=== PATIENT | female | born 1995 | race Two or more races ===

== ENCOUNTER 2017-01-16 17:43 | Emergency (ER) | payer OTHER ==
[~2017-01-16] VITALS: Wt 80.0 kg
[~2017-01-16 17:43] MED LIST: HYDR-3498 PO; IBUP800T25 PO
[2017-01-16] MEDS ORDERED: HYDROCODONE/APAP (5/325) TAB PO ONE (20:00)
[2017-01-16 20:08] LABS: ADD UMIC YES; UR BILIRUBIN (Dip) NEGATIVE (NEGATIVE); UR BLOOD (Dip) 2+ (NEGATIVE); UR CLARITY CLOUDY (CLEAR); UR COLOR LT. YELLOW (YELLOW); UR GLUCOSE (Dip) NEGATIVE (NEGATIVE); UR KETONES (Dip) NEGATIVE (NEGATIVE); UR LEUKOCYTE ESTERASE (Dip) 2+ (NEGATIVE); UR NITRITE (Dip) NEGATIVE (NEGATIVE); UR TOTAL PROTEIN (Dip) NEGATIVE (NEGATIVE); UR UROBILINOGEN (Dip) 0.2 E.U./dL (0.1-1.0)
[2017-01-16 20:15] LABS: UR BACTERIA FEW; UR SQUAMOUS EPITHELIAL CELL MODERATE
[2017-01-16] MEDS ORDERED: CEFTRIAXONE 250 MG INJ IM ONE (20:30)
[2017-01-16] MEDS ORDERED: AZITHROMYCIN 250 MG TAB PO ONE (20:30)
--- NOTE | 2017-01-16 21:59 | RADRPT ---
PROCEDURE: XR Forearm. CLINICAL INDICATION: left forearm pain TECHNIQUE: AP and lateral views of the left forearm were obtained. COMPARISON: No prior studies are available for comparison. FINDINGS: There is normal mineralization and alignment. No fracture or osseous lesion is identified. There are normal joints without evidence of arthritis or effusion. The soft tissues are unremarkable. IMPRESSION: Unremarkable left forearm. No visualized fracture or dislocation. RPTAT: HBST .Aaron Arriola MD, MD Date Time Electronically viewed and signed by .Aaron Arriola MD, MD on 01/16/2017 21:59 .T/
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
--- NOTE | 2017-01-16 22:09 | RADRPT ---
PROCEDURE: XR Knee. CLINICAL INDICATION: right knee pain TECHNIQUE: AP, lateral and tunnel view of the right knee were obtained. The images reviewed on a PACS workstation. COMPARISON: None. FINDINGS: The bones appear intact, with no evidence of fracture, erosion, demineralization, or dislocation. Th e alignment of the femorotibial and patellofemoral joints appears normal. There is mild medial femor al tibial compartment joint space narrowing. No evidence of effusion or soft tissue swelling is pres ent. IMPRESSION: No visualized fracture or dislocation. Mild medial femoral tibial compartment joint space narrowing . RPTAT: HBST .Aaron Arriola MD, MD Date Time Electronically viewed and signed by .Aaron Arriola MD, on 01/16/2017 22:09 .T/
[2017-01-16] MEDS ORDERED: HYDR-906 PO (22:30)
[2017-01-16] MEDS ORDERED: NITR-58 PO (22:30)
[2017-01-16 23:15] VITALS: BP 121/78; PULSE 80; RESP 18
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
== END 2017-01-16 23:16 | disposition home or self-care (01) ==
LOC: FTE 17:43
DX: S89.91XA Unspecified injury of right lower leg, initial encounter (principal); N39.0 Urinary tract infection, site not specified; V43.62XA Car passenger injured in collision with other type car in traffic accident, initial encounter
CPT/HCPCS: 72040; 72100; 73090; 73562; 81001; 87591; 96372; J0696; Z7502; Z7610